=== PATIENT | female | born 1935 | race Caucasian/White ===

== ENCOUNTER 2017-12-14 18:26 | Emergency (ER) | payer OTHER, MEDICAID ==
[~2017-12-14] VITALS: Ht 152.4 cm; Wt 59.0 kg
[~2017-12-14 18:26] MED LIST: ATOR40TA49 PO; CIPR500T2 PO; GUAI100S6 PO; ZOLO100T PO
[2017-12-14 18:33] VITALS: BP 197/86; PULSE 83; RESP 17; TEMP 97.6; O2SAT 97
--- NOTE | 2017-12-14 19:08 | PD ---
HPI Chief Complaint: Skin Problem Time Seen by Provider: 19:01 Travel History International Travel<30 days: No Contact w/Intl Traveler<30days: No Traveled to known affect area: No History of Present Illness HPI 82-year-old female here with right arm pain. Yesterday she had blood drawn in her right antecubital region. Since then she has developed pain and swelling and bruising in the right proximal arm. Pain is throbbing and constant worse with movement or palpation. She has been applying ice. She is not on any blood thinners. No other complaints. PFSH Past Medical History Depression: Yes (SITUATIONAL AFTER SPOUSE ) High Cholesterol: Yes Menopausal: Yes Past Surgical History Appendectomy: Yes Hysterectomy: Yes Social History Alcohol Use: Yes (OCC) Tobacco Use: No Substance Use: No Allergies-Medications (Allergen,Severity, Reaction): Coded Allergies: No Known Allergies (Unverified Allergy, Unknown, 12/14/17) Reported Meds & Prescriptions Reported Meds & Active Scripts Active Reported Probiotic (Lactobacillus Acidophilus) 10 Billion Cell Cap 1 Cap PO DAILY Zoloft (Sertraline HCl) 100 Mg Tab 100 Mg PO DAILY Atorvastatin (Atorvastatin Calcium) 40 Mg Tab 40 Mg PO HS Review of Systems Except as stated in HPI: all other systems reviewed are Neg Physical Exam Narrative GENERAL: Well-nourished female in no acute distress SKIN: Warm and dry. HEAD: Atraumatic. Normocephalic. EYES: Pupils equal and round. No scleral icterus. No injection or drainage. ENT: No nasal bleeding or discharge. Mucous membranes pink and moist. NECK: Trachea midline. No JVD. CARDIOVASCULAR: Regular rate and rhythm. No murmur appreciated. RESPIRATORY: No accessory muscle use. Clear to auscultation. Breath sounds equal bilaterally. GASTROINTESTINAL: Abdomen soft, non-tender, nondistended. Hepatic and splenic margins not palpable. MUSCULOSKELETAL: Large area of ecchymosis noted to the right proximal arm with no obvious erythematous changes. There is no pitting edema. Distal pulses are intact. NEUROLOGICAL: Awake and alert. No obvious cranial nerve deficits. Motor grossly within normal limits. Normal speech. PSYCHIATRIC: Appropriate mood and affect; insight and judgment normal. Data Data Last Documented VS Vital Signs Date Time Temp Pulse Resp B/P (MAP) Pulse Ox O2 Delivery O2 Flow Rate FiO2 12/14/17 18:33 97.6 83 17 197/86 (123) 97 Orders Orders Us Arm Venous Doppler (12/14/17 ) Ice/Cold Pack (12/14/17 19:05) Ed Discharge Order (12/14/17 21:01) MDM Medical Decision Making Medical Screen Exam Complete: Yes Emergency Medical Condition: Yes Medical Record Reviewed: Yes Differential Diagnosis [place] infiltration versus hematoma versus ecchymosis versus thrombophlebitis Narrative Course An ultrasound of the right arm was obtained revealing no acute abnormalities. The patient appears to have ecchymosis from IV infiltration to her proximal right arm. She is stable for discharge. Diagnosis Primary Impression: IV infiltration Additional Impression: Ecchymosis Additional Instructions: Ice the affected area several times a day 20 minutes at a time. Follow-up with primary care physician as needed. Return for any acutely new or worsening symptoms. Med/Other Pt SpecificInfo: No Change to Meds Disposition: 01 DISCHARGE HOME Condition: Stable Cong Hurt Dec 14, 2017 19:08
[2017-12-14] MEDS ORDERED: ATOR40TA16 PO (19:16)
[2017-12-14] MEDS ORDERED: ZOLO100T PO (19:16)
[2017-12-14] MEDS ORDERED: LACTCAP8 PO (19:16)
--- NOTE | 2017-12-14 20:58 | RADRPT ---
EXAM DATE/TIME: 12/14/2017 20:21 [facility] COMPARISON: No previous studies available for comparison. INDICATIONS : Right arm swelling and bruising. MEDICAL HISTORY : Hypercholesterolemia. Depression. SURGICAL HISTORY : Appendectomy. Hysterectomy. ENCOUNTER: Initial ACUITY: 2 day PAIN SCORE: 0/10 LOCATION: Right arm. FINDINGS: There is spontaneous flow documented in the brachial, basilic, cephalic, axillary, and subclavian vei ns. The vessels are compressible and augmentation response is documented. No filling defects are se en. The flow is phasic with respiration. Direction of flow in the jugular vein is caudal. CONCLUSION: Normal examination. Josh Prieto Jr., MD on December 14, 2017 at 20:55 Board Certified Radiologist. This report was verified electronically.
== END 2017-12-14 21:15 | disposition home or self-care (01) ==
LOC: PHED 18:26 → PHEFT 21:15
DX: T80.89XA Other complications following infusion, transfusion and therapeutic injection, initial encounter (principal); R58 Hemorrhage, not elsewhere classified; E78.00 Pure hypercholesterolemia, unspecified; F43.21 Adjustment disorder with depressed mood
CPT/HCPCS: 93971; 99284